=== PATIENT | female | born 1935 | race Caucasian/White ===

== ENCOUNTER 2016-10-22 08:43 | Day surgery (SDC) | payer OTHER ==
[2016-10-22] MEDS ORDERED: BETAMET ACET/BETAMET NA PH 6 MG/1 ML - 5 ML IAC ONE (09:00)
[2016-10-22] MEDS ORDERED: SODIUM BICARB IM ONE ×2 (09:00)
[2016-10-22] MEDS ORDERED: LIDOCAINE IM ONE ×2 (09:00)
[2016-10-22] MEDS ORDERED: Iopamidol Inj 61% 50 ML VIAL INTRATHEC ONE (09:00)
[2016-10-22] MEDS ORDERED: Ropivacaine 0.2% VIAL 2 MG/ML VIAL IAC ONE (09:00)
[2016-10-22 14:31] VITALS: RESP 14; TEMP 98.6
--- NOTE | 2016-10-22 15:29 | GEN.OPNOTE ---
Facet Injection Procedure: Other (Bilateral third occipital nerve block) Procedure Code - Neurosurgery: 30811 : Fluoroscopic Guidance, 81033 : C/T Spine Facet/Med, 1st, 74891 : C/T Spine Facet/Med, 2nd Postoperative Diagnosis: C2-3 facet arthropathy -: Consent: Rationale for procedure, nature of procedure, possible risks and benefits were discussed with the patient. Risks including allergic reaction to medications, known effects of steroid medications including transient elevations in blood sugar with aggravation of pre-existing diabetes and remote risk of aseptic necrosis of the hip. Infection or bleeding with potential risk of neurologic injury with weakness, paralysis or were all reviewed with the patient who wished to proceed. Anesthesia, sedation: No intravenous access or sedation was used. Physiologic monitoring of pulse and oxygen saturation was utilized. Procedure: The patient was placed supine on the operating room table, prepped with Chloroprep and sterilely draped. The skin was anesthetized with 1% Buffered Xylocaine. Under fluoroscopic control a 25-gauge needle was advanced to the lateral margin of the C2-3 facet and another to the junction of the upper and middle third of this 3 lateral mass and a third to the junction of the inferior third and middle third of the C2 lateral mass bisecting the lateral mass. Following this [1] ml of a mixture of Celestone (6mg/ml) and Ropivacaine was injected at each site. Procedure was done bilaterally. Lateral images of the final needle placement was obtained. The needles was removed and the patient returned to the post procedure recovery room where they were monitored for any side effects. Pain assessment: Preprocedure pain [8]/10, post procedure pain [6]/10. Discharge instructions: Patient was given a pain log to be filled out and returned. A delayed response to the steroids of 2-5 days was discussed.
== END 2016-10-22 13:33 | disposition home or self-care (01) ==
LOC: SDSC 08:43
PROVIDERS: ATTEND Neurological Surgery
DX: M47.812 Spondylosis without myelopathy or radiculopathy, cervical region (principal); M54.5 Low back pain; M16.0 Bilateral primary osteoarthritis of hip; M54.2 Cervicalgia
CPT/HCPCS: 64490; 64491; 76000; J0702; J2795; 99213; J2001

== ENCOUNTER → 2016-10-22 | Outpatient (CLI) | payer OTHER | LOC: MMPC 09:00 | PROVIDERS: ATTEND Family Medicine | DX: M54.5 Low back pain (principal); M16.0 Bilateral primary osteoarthritis of hip; M54.2 Cervicalgia | CPT/HCPCS: 99213; G0463; 64490 ==

== ENCOUNTER → 2016-12-22 | Outpatient (CLI) | payer OTHER | LOC: MMPC 09:00 | PROVIDERS: ATTEND Family Medicine | DX: M54.5 Low back pain (principal); R51 Headache; R60.0 Localized edema | CPT/HCPCS: 99213; G0463 ==

== ENCOUNTER → 2017-01-05 | Outpatient (CLI) | payer OTHER | LOC: MMPC 10:00 | PROVIDERS: ATTEND Physician Assistant | DX: M47.812 Spondylosis without myelopathy or radiculopathy, cervical region (principal) | CPT/HCPCS: 99212; G0463 ==

== ENCOUNTER 2017-02-10 09:20 | Day surgery (SDC) | payer OTHER ==
[~2017-02-10 09:20] MED LIST: BUPivacaine Inj 0.5% PF (5mg/ml) 10ml vial INTRATHEC ONE
--- NOTE | 2017-02-10 11:12 | GEN.OPNOTE ---
Facet Injection Procedure: Facet Injection with Local Anesthetic and Steriod Procedure Code - Neurosurgery: 24059 : C/T Spine Facet/Med, 1st Level: Right C23 Preoperative Diagnosis: Cervical Spondylosis Postoperative Diagnosis: same -: Consent: Rationale for procedure, nature of procedure, possible risks and benefits were discussed with the patient. Risks including allergic reaction to medications, known effects of steroid medications including transient elevations in blood sugar with aggravation of pre-existing diabetes and remote risk of aseptic necrosis of the hip. Infection or bleeding with potential risk of neurologic injury with weakness, paralysis or were all reviewed with the patient who wished to proceed. Anesthesia, sedation: No intravenous access or sedation was used. Physiologic monitoring of pulse and oxygen saturation was utilized. Procedure: The patient was placed prone on the operating room table, prepped with Chloroprep and sterilely draped. The skin was anesthetized with 1% Buffered Xylocaine. Under fluoroscopic control a 22-gauge needle was advanced centroid pf the C2 and C3 level on the right. Following this 1 ml of .5% bupivicaine was injected. AP and lateral images of the final needle placement was obtained. The needle was removed and the patient returned to the post procedure recovery room where they were monitored for any side effects. Pain assessment: Preprocedure pain []/10, post procedure pain []/10. Discharge instructions: Patient was given a pain log to be filled out and returned. A delayed response to the steroids of 2-5 days was discussed.
[2017-02-10 11:17] VITALS: RESP 18; TEMP 97.7
== END 2017-02-10 11:45 | disposition home or self-care (01) ==
LOC: SDSC 09:20
PROVIDERS: ATTEND Pain Medicine Interventional Pain Medicine
DX: M47.812 Spondylosis without myelopathy or radiculopathy, cervical region (principal)
CPT/HCPCS: 76000; J3490

== ENCOUNTER → 2017-04-06 | Outpatient (CLI) | payer OTHER | LOC: MMPC 09:00 | PROVIDERS: ATTEND Family Medicine | DX: M54.5 Low back pain (principal); M54.2 Cervicalgia; F41.1 Generalized anxiety disorder | CPT/HCPCS: 99213; G0463 ==

== ENCOUNTER → 2017-04-28 | Outpatient (CLI) | payer OTHER ==
--- NOTE | 2017-04-28 11:01 | DI ---
History: Neck pain Comparison: April 14, 2015 Findings: Posterior fixation extends from C3 to C6 graft Anterior plate and screws extend from C3-C7. Hardware is well seated. No instability is demonstrated with flexion or extension views The C2-3 intervertebral disc space is well maintained. There is no prevertebral soft tissue swelling. Impression: Extensive cervical hardware. Hardware is well seated. Alignment is stable. No changes. Since April 14, 2015.
== END ==
LOC: ORTHO 10:32
PROVIDERS: ATTEND Physician Assistant
DX: M54.2 Cervicalgia (principal); Z98.890 Other specified postprocedural states
CPT/HCPCS: 72050; 99212

== ENCOUNTER 2017-05-04 09:51 | Day surgery (SDC) | payer OTHER ==
[~2017-05-04 09:51] MED LIST changes: -BUPivacaine Inj 0.5% PF (5mg/ml) 10ml vial INTRATHEC ONE; +DEXAMETHASONE PF 10 MG/1 ML VIAL IM ONE
--- NOTE | 2017-05-04 11:35 | GEN.OPNOTE ---
Facet Injection Procedure: Facet Injection with Local Anesthetic and Steriod Procedure Code - Neurosurgery: 83706 : C/T Spine Facet/Med, 1st Level: C23 Preoperative Diagnosis: Cervical Spondylosis Postoperative Diagnosis: same -: Consent: Rationale for procedure, nature of procedure, possible risks and benefits were discussed with the patient. Risks including allergic reaction to medications, known effects of steroid medications including transient elevations in blood sugar with aggravation of pre-existing diabetes and remote risk of aseptic necrosis of the hip. Infection or bleeding with potential risk of neurologic injury with weakness, paralysis or were all reviewed with the patient who wished to proceed. Anesthesia, sedation: No intravenous access or sedation was used. Physiologic monitoring of pulse and oxygen saturation was utilized. Procedure: The patient was placed prone on the operating room table, prepped with Chloroprep and sterilely draped. The skin was anesthetized with 1% Buffered Xylocaine. Under fluoroscopic control a 22-gauge needle was advanced right C23 facet joint . Omnipaque was injected under real-time fluoroscopy demonstrating an facet arthrogram. Following this 1 ml of a mixture of triamcinolone(40mg/ml) and Ropivacaine was injected. AP and lateral images of the final needle placement was obtained. The needle was removed and the patient returned to the post procedure recovery room where they were monitored for any side effects. Pain assessment: Preprocedure pain []/10, post procedure pain []/10. Discharge instructions: Patient was given a pain log to be filled out and returned. A delayed response to the steroids of 2-5 days was discussed.
[2017-05-04 12:06] VITALS: RESP 16
[2017-05-04 12:17] VITALS: TEMP 97.3
== END 2017-05-04 11:45 | disposition home or self-care (01) ==
LOC: SDSC 09:51
PROVIDERS: ATTEND Pain Medicine Interventional Pain Medicine
DX: M47.812 Spondylosis without myelopathy or radiculopathy, cervical region (principal)
CPT/HCPCS: 64490; 76000; J1100

== ENCOUNTER 2018-10-22 16:36 | Inpatient (IN) ==
[2018-10-22] MEDS ORDERED: Sodium Chloride 0.9% 1,000 ML PRIMARY IV ONE (17:05)
[2018-10-22] MEDS ORDERED: ONDANSETRON 4 MG/2 ML VIAL IVP ONE (17:05)
--- NOTE | 2018-10-22 17:11 | EKG ---
[address] [address] Measurements Intervals [place] Rate: 59 P: 32 TN: 159 QRS: 104 QRSD: 90 T: 55 QT: 448 QTc: 447 Interpretive Statements SINUS BRADYCARDIA MARKED RIGHT AXIS DEVIATION , QUESTION LEAD REVERSAL VS RVH Compared to ECG 03/14/2013 17:44:51 Right-axis deviation now present Sinus rhythm no longer present Consider repeat study Electronically Signed On 10-22-18 17:34:17 [facility] by Zac Valadez [email or web address]
[2018-10-22 17:16] LABS: BASOPHILS # (AUTO) 0.02 10*3/UL; BASOPHILS % (AUTO) 0.3 % (0-1); EOSINOPHILS # (AUTO) 0.07 10*3/UL; EOSINOPHILS % (AUTO) 1.1 % (0-8); Hematocrit [HCT] 39.6 % (37.0-47.0); Hemoglobin [HGB] 13.1 g/dL (12.0-16.0); LYMPHOCYTES # (AUTO) 0.97 10*3/uL; MEAN CORPUSCULAR HEMOGLOBIN 33.4 PG (27-31); MEAN CORPUSCULAR HGB CONC 33.1 g/dL (33-37); MEAN PLATELET VOLUME 9.2 FL (7.4-12.2); MONOCYTES # (AUTO) 0.68 10*3/UL (0.3-0.8); MONOCYTES % (AUTO) 11.1 % (5-15); NEUTROPHILS # (AUTO) 4.35 10*3/UL; NEUTROPHILS % (AUTO) 71.2 % (50-80); RED BLOOD COUNT 3.92 10^6/uL (4.20-5.40)
[2018-10-22 17:16] LABS: VENOUS PH 7.38 (7.32-7.42)
[2018-10-22 17:17] LABS: PLATELET MORPHOLOGY COMMENT NORMAL MORPHOLOGY (NORM); RBC MORPHOLOGY COMMENT NORMAL MORPHOLOGY (NORM); WBC MORPHOLOGY COMMENT NORMAL MORPHOLOGY (NORM)
[2018-10-22] MEDS ORDERED: KETOROLAC 15 MG/1 ML VIAL IVP ONE (17:18)
[2018-10-22 17:28] LABS: BLOOD UREA NITROGEN 12 mg/dL (7-22); SERUM ALBUMIN 3.8 g/dL (3.5-4.8)
[2018-10-22 17:40] LABS: BILIRUBIN,URINE NEGATIVE (NEG); CLARITY,URINE CLEAR (CLEAR); COLOR,URINE YELLOW (Y); GLUCOSE, URINE (UA) NEGATIVE (NEG); OCCULT BLOOD,URINE NEGATIVE (NEG); PROTEIN,URINE NEGATIVE (NEG); UROBILINOGEN,URINE 0.2 EU/dL (0.2)
[2018-10-22 17:41] LABS: URINE SAMPLE TYPE CATH SPECIMEN
--- NOTE | 2018-10-22 18:20 | DI ---
XR CXR 2VW PA/LAT,10/22/2018 5:05 PM: Clinical History: Cough and dyspnea. Previous Exam: July 28, 2007 Findings: PA and lateral views of the chest are obtained, and demonstrate airspace disease within the lung base s and blunting of the costophrenic angles. Postsurgical changes are seen within the cervical spine. There is some silhouetting of the right hear t border as well. Mild degenerative changes of the acromioclavicular joints are seen. There is diffuse osteopenia. Impression: Airspace disease within the lung bases and silhouetting of the right heart border worrisome for pneum onia. Recommend followup imaging after treatment to document resolution.
[2018-10-22] MEDS ORDERED: FUROSEMIDE 10 MG/1 ML - 4 ML IVP ONE (18:23)
--- NOTE | 2018-10-22 19:43 | DI ---
CT ANGIOGRAM OF THE CHEST, 10/22/2018 6:23 PM : Clinical History: Dyspnea. Elevated D-dimer test. Previous Exam: 02/19/2013 Technique: Scans from base of neck to lung bases with IV contrast. Bolus tracking protocol was used f or timing the injection. Non-MIPS and MIPS sagittal/coronal images generated. IV Contrast: 56 mL of Isovue 300. Base of Neck: Normal. Nodes: Normal axillary, supraclavicular, mediastinal, and hilar lymph nodes. Heart: Cardiomegaly. Calcifications are present in the proximal and middle thirds of the LAD and the right coronary artery. Aorta: Normal thoracic aorta. No aneurysm or dissection. Pulmonary Arteries: No pulmonary emboli or pulmonary embolism with infarction. There is pulmonary art erial hypertension. Lungs: No acute infiltrate present. Extensive Valentin A Valentin B lines are present and these are quite prominent in terms of caliber. The findings are consistent with interstitial pulmonary edema seconda ry to CHF. Small blebs are present in both lungs primarily in the upper lobes. Effusion(s): Small bilateral pleural effusions. Fluid is also present in the right major fissure. Nodules: None. Bony Structures: Normal visualized portions of ribs, sternum, scapulae, clavicles, and shoulders. Nor mal visualized portions of thoracic spine. Diffuse osteoporosis. Limited Upper Abdomen: Normal adrenal glands and spleen. Normal limited views of liver and pancreas. READIN. No evidence of pulmonary embolism or pulmonary embolism with infarction. There is pulmonary arter ial hypertension. 2. Cardiomegaly with CHF. Small bilateral pleural effusions. Coronary artery disease with calcificat ions in the LAD and right coronary artery. 3. No evidence of pneumonia. Centrilobular emphysema 4. Diffuse osteoporosis.
--- NOTE | 2018-10-22 20:58 | PDOC ---
HPI - History of Present Illness History of Present Illness: This very nice 83-year-old female who was been feeling short of breath over the last 2 weeks she was first seen in [place] and there they gave her some medication for headache. Then she went to the [facility] yesterday was seen by Travis was sent home today she is been more short of breath and came to the ER by her son. Patient looks to be in active congestive heart failure with +3 pitting edema and decreased breath sounds and lateral pulmonary effusions denies chest pain she is coherent and speaks in full sentences I did discuss the case with her son in detail Past Medical History Medical History: Congestive heart failure/GERD Tobacco Use: Former Smoker In the Past 12 Months, Have Used or Abuse Any of the Following Substance: None Medication / Allergies Home Medications: Home Medications Medication Instructions Recorded Confirmed Type Travoprost [Travatan Z] 1 drp OP BEDTIME drp 12/22/09 10/22/18 History Timolol Maleate/Pf [Timoptic 0.5% 1 ea OP DAILY 08/16/11 10/22/18 History Ocudose Drop] Lutein 2 tab PO QD 11/22/12 10/22/18 History Acetaminophen [Tylenol] 325 mg PO QID PRN tab 05/07/13 10/22/18 History Folic Acid 0.8 mg PO DAILY tab 05/07/13 10/22/18 History Probiotic 1 ea PO DAILY cap 05/07/13 10/22/18 History Esomeprazole Magnesium [Nexium] 1 cap PO QD #30 cap 10/17/15 10/22/18 History Potassium Gluconate [Potassium] 1 tab PO QD tab 05/12/16 10/22/18 History Cholecalciferol (Vitamin D3) 2 tab PO QD #60 tab 07/09/16 10/22/18 Rx [Vitamin D3] Levothyroxine Sodium [Synthroid] 1 tab PO DAILY tab 08/26/16 10/22/18 History Vit C/E/Zn/Coppr/Lutein/Zeaxan 1 ea PO QD cap 10/22/16 10/22/18 History [Preservision Areds 2 Softgel] Hydromorphone HCl [Dilaudid] 1 tab PO Q4H #180 tab 04/06/17 Clinic Lorazepam 1 tab PO TID #90 tab 04/06/17 Clinic Magnesium 200 mg PO QD tab 04/06/17 10/22/18 History Gabapentin [Neurontin] 1 cap PO ASDIR #180 cap 04/29/17 10/22/18 Clinic Beta Carot W/Vit E,C,Min Tab 1 ea PO DAILY 05/15/18 10/22/18 History [Ocuvite Tab] Lorazepam 0.5 mg PO TID PRN 05/15/18 10/22/18 History Multivitamin [Daily Multivitamin] 1 ea PO DAILY 05/15/18 10/22/18 History Pyridoxine HCl [Vitamin B6] 100 mg PO DAILY 05/15/18 10/22/18 History Hydrocodone/Acetaminophen 1 tab PO Q6H PRN PRN 10/22/18 10/22/18 History [Hydrocodone-Acetamin 7.5-325] Ondansetron Odt [Zofran ODT] 4 mg PO Q8H PRN 10/22/18 10/22/18 History Allergies/Adverse Reactions: Allergies Allergy/AdvReac Type Severity Reaction Status Date / Time diphenhydramine Allergy Severe THROAT Verified 10/22/18 16:58 [Diphenhydramine] SWELLING Sulfa (Sulfonamide Allergy Severe SWELLING Verified 10/22/18 16:58 Antibiotics) cephalexin Allergy Intermediate THROAT Verified 10/22/18 16:58 SWELLING tramadol AdvReac Severe DIZZINESS Verified 10/22/18 16:58 codeine [Codeine] AdvReac Intermediate NAUSEA Verified 10/22/18 16:58 cyclobenzaprine HCl AdvReac Intermediate FEET/LEG Verified 10/22/18 16:58 [From Flexeril] SWELLING duloxetine HCl AdvReac Intermediate HALLUCINATI Verified 10/22/18 16:58 [From Cymbalta] ONS fentanyl AdvReac Intermediate "FEEL Verified 10/22/18 16:58 FUNNY" oxycodone AdvReac Intermediate NAUSEA Verified 10/22/18 16:58 Review of Systems - Review of Systems All Systems: Reviewed & No Additional Complaints Except as Stated - Respiratory Respiratory: REPORTS: Cough, Dyspnea with Exertion - Cardiovascular Cardiovascular: REPORTS: Orthopnea. DENIES: Chest Pain - Gastrointestinal Gastrointestinal / Abdominal: DENIES: Negative System Review, Nausea, Vomiting, Diarrhea, Constipation, Abdominal Pain, Bloody Stool, Poor Appetite, Heartburn, Regurgitation, Bloating, Lactose Intolerance, Melena, Bright Red Blood per Rectum, Other, See HPI - Genitourinary Genitourinary: DENIES: Pain, Burning, Hematuria, Urgency Exam - Vitals Vital Signs: Vital Signs Temperature 97.7 F Temperature Source Temporal Artery Scan Pulse Rate [Pulse Oximeter 67 Right] Respiratory Rate 15 Blood Pressure [Left Arm] 157/92 Pulse Ox 70 Oxygen Delivery Method Room Air Height 5 ft 3 in Weight 169 lb - General General Appearance: No Acute Distress, Cooperative - Head Head Exam: Normal Inspection, Normocephalic, Atraumatic - Eye Eye Exam: POSITIVE: PERRL, EOMI - Neck Neck Exam: Normal Inspection, Full ROM, No Tenderness, No Lymphadenopathy, No Thyromegaly, JVP is not Raised - Cardiovascular Cardiovascular Exam: POSITIVE: RRR, No Murmur, No Clicks, No Gallops, No Rubs, PMI Non-Displaced - GI/Abdominal GI/Abdominal Exam: POSITIVE: Normal Bowel Sounds, Non Tender, Non Distended, Soft, No Masses, No Hepatomegaly, No Splenomegaly, No Organomegaly - Extremities Extremities Exam: POSITIVE: No Clubbing Present, No Cyanosis Present, +3 Edema - Neurological Neurological Exam: POSITIVE: Alert, No Facial Droop, Speech Intact / Clear - Psychiatric Psychiatric Exam: POSITIVE: Normal Affect Results - Labs CBC and BMP: 10/22/18 16:55 10/22/18 16:55 Assessment and Plan - Patient Problems (1) CHF (congestive heart failure) Current Visit: No Status: Acute Onset Date: 02/19/13 Comment: We will admit the patient telemetry protocol, Lasix drip insert Bernabe fracture output she does have bilateral pleural effusions most likely this is all right heart failure with pulmonary hypertension and emphysema she does have calcifications in the LAD and right coronary we'll rule out with serial troponins. Continue other meds for other medical issues that are not active at this point we'll monitor electrolytes and replace as needed Code(s): I50.9 - Heart failure, unspecified (2) GERD (gastroesophageal reflux disease) Current Visit: No Status: Acute Onset Date: 08/01/12 Code(s): K21.9 - Gastro-esophageal reflux disease without esophagitis (3) Hypoxia Current Visit: No Status: Acute Onset Date: 02/27/13 Code(s): R09.02 - Hypoxemia
[2018-10-22] MEDS ORDERED: GABAPENTIN 100 MG CAPSULE PO SCH (21:34)
[2018-10-22] MEDS ORDERED: LIDOCAINE W/ SODIUM BICARB 0.5 ML SYR SUBD PRN (21:34)
[2018-10-22] MEDS ORDERED: ACETAMINOPHEN 325 MG TABLET PO PRN (21:34)
[2018-10-22] MEDS ORDERED: LIDOCAINE HCL 2 % 10 ML JELLY URO-JECT TOPICAL PRN (21:34)
[2018-10-23] MEDS: HEPARIN 5000 UNIT/1 ML SUBCUT SCH ×4 (00:11→21:13)
[2018-10-23] MEDS: HYDROcodone-APAP 7.5 MG-325 MG TABLET PO PRN ×3 (02:11→14:47)
[2018-10-23] MEDS: LEVOTHYROXINE 137 MCG TABLET PO SCH (04:42)
[2018-10-23 05:25] LABS: BLOOD UREA NITROGEN 10 mg/dL (7-22); BUN/CREATININE RATIO 16.66 (6-20); SERUM ALBUMIN 4.1 g/dL (3.5-4.8)
[2018-10-23] MEDS: OMEPRAZOLE 40 MG CAPSULE PO SCH (05:41)
[2018-10-23] MEDS: LORazepam 1 MG TABLET PO PRN ×2 (05:41→10:45)
--- NOTE | 2018-10-23 06:38 | PDOC ---
General Adult HPI - General Chief Complaint: Dyspnea Stated Complaint: DYSPNEA Date Seen by Provider: 10/22/18 Time Seen by Provider: 16:50 Source: POSITIVE: Patient, Spouse Exam Limitations: POSITIVE: No limitations Nurse's Notes Reviewed & Considered: Yes - History of Present Illness Initial Comment: The patient is an 83-year-old female who is brought to the emergency room by her son. Patient and son reports that for the past 7 days, approximately, she has had progressive weakness. She's also had some shortness of breath and nausea. She states that she was seen in the emergency room in [place] 6 days ago and was discharged, reportedly without any etiology found. She she was also recently seen at an urgent care center yesterday. Patient denies any chest pain. She does complain of dyspnea and her oxygen saturation on room air upon arrival to the emergency room was noted to be 70%. Afebrile. She's had some cough, especially today. Some diarrhea a week ago. Cough is minimally productive. No pleurisy. Have you received a tetanus shot in the past 10 years?: Unknown Body Location Affected: REPORTS: Chest Timing: REPORTS: Gradual, Getting Worse Duration: >1 week Severity: Moderate Quality: REPORTS: Other (Patient denies any pain anywhere) Context: REPORTS: None Modifying Factors: improves with: Coughing, Other (Shortness of breath; progressive weakness) Associated Symptoms: Shortness of breath, cough, progressive weakness. Similar Symptoms Previously: No Recent Care Received: REPORTS: Recently Seen, Treated by MD (As above) Any Prior Injuries Related to Current Complaint?: No - Patient Home Medications Home Medications: Home Medications Travoprost [Travatan Z] 1 drp OP BEDTIME drp 12/22/09 Timolol Maleate/Pf [Timoptic 0.5% Ocudose Drop] 1 ea OP DAILY 08/16/11 Lutein 2 tab PO QD 11/22/12 Acetaminophen [Tylenol] 325 mg PO QID PRN tab 05/07/13 Folic Acid 0.8 mg PO DAILY tab 05/07/13 Probiotic 1 ea PO DAILY cap 05/07/13 Esomeprazole Magnesium [Nexium] 1 cap PO QD #30 cap 10/17/15 Potassium Gluconate [Potassium] 1 tab PO QD tab 05/12/16 Cholecalciferol (Vitamin D3) [Vitamin D3] 2 tab PO QD #60 tab 07/09/16 Levothyroxine Sodium [Synthroid] 1 tab PO DAILY tab 08/26/16 Vit C/E/Zn/Coppr/Lutein/Zeaxan [Preservision Areds 2 Softgel] 1 ea PO QD cap 10/22/16 Hydromorphone HCl [Dilaudid] 1 tab PO Q4H #180 tab 04/06/17 Lorazepam 1 tab PO TID #90 tab 04/06/17 Magnesium 200 mg PO QD tab 04/06/17 Gabapentin [Neurontin] 1 cap PO ASDIR #180 cap 04/29/17 Beta Carot W/Vit E,C,Min Tab [Ocuvite Tab] 1 ea PO DAILY 05/15/18 Lorazepam 0.5 mg PO TID PRN 05/15/18 Multivitamin [Daily Multivitamin] 1 ea PO DAILY 05/15/18 Pyridoxine HCl [Vitamin B6] 100 mg PO DAILY 05/15/18 Hydrocodone/Acetaminophen [Hydrocodone-Acetamin 7.5-325] 1 tab PO Q6H PRN PRN 10/22/18 Ondansetron Odt [Zofran ODT] 4 mg PO Q8H PRN 10/22/18 - Patient Allergies Allergies/Adverse Reactions: Allergies Allergy/AdvReac Type Severity Reaction Status Date / Time diphenhydramine Allergy Severe THROAT Verified 10/22/18 16:58 [Diphenhydramine] SWELLING Sulfa (Sulfonamide Allergy Severe SWELLING Verified 10/22/18 16:58 Antibiotics) cephalexin Allergy Intermediate THROAT Verified 10/22/18 16:58 SWELLING tramadol AdvReac Severe DIZZINESS Verified 10/22/18 16:58 codeine [Codeine] AdvReac Intermediate NAUSEA Verified 10/22/18 16:58 cyclobenzaprine HCl AdvReac Intermediate FEET/LEG Verified 10/22/18 16:58 [From Flexeril] SWELLING duloxetine HCl AdvReac Intermediate HALLUCINATI Verified 10/22/18 16:58 [From Cymbalta] ONS fentanyl AdvReac Intermediate "FEEL Verified 10/22/18 16:58 FUNNY" oxycodone AdvReac Intermediate NAUSEA Verified 10/22/18 16:58 Past Medical History - heen HEENT History: Glaucoma, Macular Degeneration Cardiovascular History: Denies History Respiratory History: Pneumonia Additional Respiratory History: HISTORY PNEUMONIA WITH EMPYEMA Gastrointestinal History: GERD Genitourinary History: Recurrent UTI, Incontinence Endocrine History: Hypothyroidism Musculoskeletal History: Arthritis, Back Pain, Joint Pain Prosthesis or Implant: Yes (L HIP, RT KNEE) Additional Musculoskeletal History: CHRONIC NECK PAIN Neurological History: Migraines, Other (please comment) Additional Neurological History: HEADACHES Blood Disorders: Denies History Psychiatric History: Anxiety Disorders Additional Psychiatric History: hydromorphone q4h History of Sexually Transmitted Diseases: No Female Reproductive History: Denies History Obstetrical History: Denies History Cancer History: Denies History In Past Year Been Physically Harmed or Verbally Threatened: No History of MDRO: No History of Other Communicable Diseases: No Tobacco Use: Former Smoker Alcohol Use: None In the Past 12 Months, Have Used or Abuse Any Substance: None Previous Surgical History: Yes Type / Date of Surgery: APPY/ BILAT BREAST BX/ CATARACT EXT, BILAT/ MING/ COLONOSCOPY/ D&C/ EGD/ LEFT TKA/ THORACOSCOPY WITH DRAINAGE OF EMPYEMA/ TONSIL LECTOMY/ NECK FUSION, ANTERIOR AND POSTERIOR APPROACHES/SHOULDER SX L, TOT L HIP, DRAIN IN RT EYE Anesthesia Reactions: No Malignant Hyperthermia: No Significant Family History: Cancer Past Medical History Reviewed: Reviewed - No Changes ROS - Limitations ROS Limitations: No Limitations Constitution: REPORTS: Weakness Cardiovascular: REPORTS: Denies Cardiac Symptoms Respiratory: REPORTS: Cough Non Productive, Shortness Of Breath Neurological: REPORTS: Denies Neuro Symptoms Gastrointestinal: REPORTS: Nausea Endocrine: REPORTS: Denies Symptoms Musculoskeletal: REPORTS: Denies MS Symptoms Genitourinary: REPORTS: Denies Symptoms Eyes: REPORTS: Denies Symptoms ENT: REPORTS: Denies Symptoms Skin: REPORTS: Denies Skin Symptoms Lympathic: REPORTS: Denies Lympathic Symptoms Immunologic: POSITIVE: Denies Symptoms Psychiatric: POSITIVE: Denies Psych Symptoms General Adult Exam - General Appearance General Appearance: POSITIVE: Alert, Cooperative, No Acute Distress, No Evidence of Trauma - HEENT HEENT: POSITIVE: Head Inspection Nml, Eyes Inspection Nml, Ears Inspection Nml, Nose Inspection Nml, Oral/Dental Inspect. Nml, Pharynx Inspect. Nml, PERRL, EOMI - Pupils Pupil Size: 3 mm: Bilateral - Neck Neck: POSITIVE: Normal Inspection, Thyroid Normal - Respiratory Respiratory: POSITIVE: Rales (Bilateral posterior rales, especially on the right). NEGATIVE: Breath Sounds Normal - Cardiovascular Cardiovascular: POSITIVE: Regular Rate & Rhythm, No Murmur, No Gallop, PMI Normal Peripheral Pulses: Radial (R): 2+, Radial (L): 2+, Dorsalis-pedis (R): 2+, Dorsalis-pedis (L): 2+ - Abdomen Abdomen: Soft: (All Quadrants), Normal Bowel Sounds: (All Quadrants), Denies Tenderness: (All Quadrants), No Splenomegaly: (All Quadrants), No Hepatomegaly: (All Quadrants), No Guarding: (All Quadrants), No Rebound: (All Quadrants), No Palpable Pulse: (All Quadrants), No Palpabale Mass: (All Quadrants), No Distention: (All Quadrants), No Rigidity: (All Quadrants) - Back Back: POSITIVE: Normal Inspection - Skin Skin: POSITIVE: Normal Color, Warm, Dry, No Rash - Extremities Extremity: Non-Tender: (All Extremities), Normal ROM: (All Extremities), Pelvis Stable: (RUE), (LUE), Normal Tendon Exam: (All Extremities), Edema / Swelling: (RLE), (LLE) Additional Extremities Details: Extremity examination normal except for bilateral pedal edema - Neurological / Psychological Neurological: POSITIVE: 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 CTA chest shows pulmonary edema; no PE. Small bilateral pleural effusions Lab Results Reviewed by Me: Yes Lab Results:: Laboratory Results 10/22/18 10/22/18 10/22/18 16:55 16:55 16:55 WBC 6.12 RBC 3.92 L Hgb 13.1 Hct 39.6 MCV 101.0 H MCH 33.4 H MCHC 33.1 RDW Std Deviation 54.5 H RDW Coeff of Ping 14.9 H Plt Count 357 H MPV 9.2 Immature Gran % (Auto) 0.5 Neut % (Auto) 71.2 Lymph % (Auto) 15.8 Hand % (Auto) 11.1 Eos % (Auto) 1.1 Baso % (Auto) 0.3 Immature Gran # (Auto) 0.03 Neut # (Auto) 4.35 Lymph # (Auto) 0.97 Hand # (Auto) 0.68 Eos # (Auto) 0.07 Baso # (Auto) 0.02 WBC Morphology Comment Normal morphology Plt Morphology Comment Normal morphology RBC Morph Comment Normal morphology D-Dimer 1.13 H VBG pH VBG pCO2 VBG HCO3 VBG Base Excess Sodium 129 L Potassium 4.4 Chloride 91 L Carbon Dioxide 26 Anion Gap 12 BUN 12 Creatinine 0.6 BUN/Creatinine Ratio 20.00 Glucose 110 Calculated Osmolality 268.0 Lactic Acid Calcium 8.7 Total Bilirubin 0.5 AST 22 ALT 28 Alkaline Phosphatase 73 Troponin I C-Reactive Protein 1.4 H NT-Pro-B Natriuret Pep 1790 H Total Protein 6.4 Albumin 3.8 Globulin 2.6 Albumin/Globulin Ratio 1.40 Ur Collection Type Urine Color Urine Clarity Urine pH Ur Specific [place] Urine Protein Urine Glucose (UA) Urine Ketones Urine Occult Blood Urine Nitrate Urine Bilirubin Urine Urobilinogen Ur Leukocyte Esterase Ur Culture Indicated? 10/22/18 10/22/18 10/22/18 16:55 16:55 17:05 WBC RBC Hgb Hct MCV MCH MCHC RDW Std Deviation RDW Coeff of Ping Plt Count MPV Immature Gran % (Auto) Neut % (Auto) Lymph % (Auto) Hand % (Auto) Eos % (Auto) Baso % (Auto) Immature Gran # (Auto) Neut # (Auto) Lymph # (Auto) Hand # (Auto) Eos # (Auto) Baso # (Auto) WBC Morphology Comment Plt Morphology Comment RBC Morph Comment D-Dimer VBG pH VBG pCO2 VBG HCO3 VBG Base Excess Sodium Potassium Chloride Carbon Dioxide Anion Gap BUN Creatinine BUN/Creatinine Ratio Glucose Calculated Osmolality Lactic Acid 1.1 Calcium Total Bilirubin AST ALT Alkaline Phosphatase Troponin I < 0.012 C-Reactive Protein NT-Pro-B Natriuret Pep Total Protein Albumin Globulin Albumin/Globulin Ratio Ur Collection Type Cath specimen Urine Color Yellow Urine Clarity Clear Urine pH 7.0 Ur Specific [place] 1.010 Urine Protein Negative Urine Glucose (UA) Negative Urine Ketones Negative Urine Occult Blood Negative Urine Nitrate Negative Urine Bilirubin Negative Urine Urobilinogen 0.2 Ur Leukocyte Esterase Negative Ur Culture Indicated? Culture not set 10/22/18 17:08 WBC RBC Hgb Hct MCV MCH MCHC RDW Std Deviation RDW Coeff of Ping Plt Count MPV Immature Gran % (Auto) Neut % (Auto) Lymph % (Auto) Hand % (Auto) Eos % (Auto) Baso % (Auto) Immature Gran # (Auto) Neut # (Auto) Lymph # (Auto) Hand # (Auto) Eos # (Auto) Baso # (Auto) WBC Morphology Comment Plt Morphology Comment RBC Morph Comment D-Dimer VBG pH 7.38 VBG pCO2 43 L VBG HCO3 25 VBG Base Excess 0 Sodium Potassium Chloride Carbon Dioxide Anion Gap BUN Creatinine BUN/Creatinine Ratio Glucose Calculated Osmolality Lactic Acid Calcium Total Bilirubin AST ALT Alkaline Phosphatase Troponin I C-Reactive Protein NT-Pro-B Natriuret Pep Total Protein Albumin Globulin Albumin/Globulin Ratio Ur Collection Type Urine Color Urine Clarity Urine pH Ur Specific [place] Urine Protein Urine Glucose (UA) Urine Ketones Urine Occult Blood Urine Nitrate Urine Bilirubin Urine Urobilinogen Ur Leukocyte Esterase Ur Culture Indicated? CBC and BMP: 10/22/18 16:55 10/23/18 04:41 EKG Interpreted/Reviewed By Me:: Yes (normal) EKG Interpretation:: POSITIVE: Normal Sinus Rhythm, Normal Rate, Normal Intervals, Normal [place], Normal QRS, Normal ST/T - Patient's Progress Pain Medication Addressed: POSITIVE: Not Applicable School/Work Release Addressed: POSITIVE: Not Applicable Re-Examine Time: 20:00 Re-Examine Comment: Patient given 40 mg of Lasix IV. Case discussed with Dr. Ornelas, hospitalist, who will come to the emergency room to further evaluate and admit. Status: POSITIVE: Unchanged, Re-Examined Antibiotics Given: No - Consult Consult (If Yes, Name of Consulting MD & Time Called): Yes (Dr. Ornelas, hospitalist, 1999) Consulting MD will see pt:: POSITIVE: [place] [facility] [place] Counseled: POSITIVE: Patient, Family (Son), RE: Lab Results, RE: Radiology Results, RE: DX, RE: Need for F/U Patient Care Time - Estimated PCT Patient Care Time (In Minutes): 60 Vital Signs - VS Reviewed Vital Signs Reviewed: Yes Discharge Clinical Impression: Congestive heart failure Discharge Disposition: Admit to Inpatient Condition: Fair Date Decision to Admit to Inpatient: 10/22/18 Time Decision to Admit to Inpatient: 20:00
[2018-10-23] MEDS: MAGNESIUM OXIDE 400 MG TABLET PO SCH (06:53)
[2018-10-23] MEDS ORDERED: Magnesium Sulfate 2gm (Premix) 2 GM/50 ML BAG IV ONE (08:27)
[2018-10-23] MEDS ORDERED: POTASSIUM GLUCONATE 99 MG PO SCH (09:00)
--- NOTE | 2018-10-23 09:16 | PDOC(PROG) ---
Interval History: Patient is feeling much better she is not short of breath today no chest pain he is very pleased with her legs not being as puffy Objective : Data - Labs CBC and BMP: 10/22/18 16:55 10/23/18 04:41 Objective : Exam - General General Appearance: Cooperative - Respiratory Respiratory Exam: Clear to Auscultation - Bilaterally, Breathing Non Labored, Normal To Percussion, Normal to Percussion and Palpation - Cardiovascular Cardiovascular Exam: RRR, No Murmur, No Clicks, No Gallops, No Rubs, PMI Non- Displaced - GI/Abdominal GI/Abdominal Exam: Normal Bowel Sounds, Non Tender, Non Distended, Soft, No Masses, No Hepatomegaly, No Splenomegaly, No Organomegaly - Extremities Extremities Exam: No Clubbing Present, +1 Edema - Neurological Neurological Exam: Alert, Oriented x 3, No Facial Droop, Speech Intact / Clear Assessment and Plan - Patient Problems (1) CHF (congestive heart failure) Current Visit: Yes Status: Acute Onset Date: 02/19/13 Comment: Improving on Lasix drip -3600 will continue for 1 more day replace magnesium and potassium.. Most likely pulmonary hypertension with right-sided heart failure that could be also left-sided failure I did order an echo might also need a stress test Code(s): I50.9 - Heart failure, unspecified (2) GERD (gastroesophageal reflux disease) Current Visit: No Status: Acute Onset Date: 08/01/12 Comment: Stable Code(s): K21.9 - Gastro-esophageal reflux disease without esophagitis (3) Hypoxia Current Visit: No Status: Acute Onset Date: 02/27/13 Comment: Secondary to congestive heart failure, and emphysema I do not believe she is having a COPD exacerbation at this time Code(s): R09.02 - Hypoxemia
[2018-10-23] MEDS: POTASSIUM CHLORIDE 20 MEQ TAB PO SCH ×2 (09:19→20:09)
[2018-10-23] MEDS: FOLIC ACID 1 MG TABLET PO SCH (09:19)
[2018-10-23] MEDS ORDERED: Acetaminophen 1000mg Inj 1,000 MG/100 ML VIAL IV ONE (10:01)
[2018-10-23] MEDS: Beta Carot W/Vit E,C,Min Tab 1 TAB TAB PO SCH (12:15)
[2018-10-23] MEDS: GABAPENTIN 100 MG CAPSULE PO SCH ×3 (12:15→20:08)
[2018-10-23] MEDS ORDERED: MORPHINE SULFATE 2 MG/1 ML IVP PRN ×2 (14:15→19:46)
[2018-10-23] MEDS: EYE EACH EYE SCH (20:08)
[2018-10-23] MEDS: MORPHINE SULFATE 2 MG/1 ML IVP PRN (20:08)
[2018-10-23] MEDS: TRAVOPROST 0.004% EACH EYE SCH (20:08)
[2018-10-23] MEDS ORDERED: PHENOL/SODIUM PHENOLATE 177 ML SPRAY PO PRN (20:50)
[2018-10-23] MEDS ORDERED: KETOROLAC 15 MG/1 ML VIAL IVP ONE (20:50)
[2018-10-23] MEDS ORDERED: EYE EACH EYE SCH (21:00)
[2018-10-23] MEDS ORDERED: TIMOLOL MALEATE 0.5% EACH EYE SCH (21:00)
[2018-10-24] MEDS: HYDROcodone-APAP 7.5 MG-325 MG TABLET PO PRN ×5 (00:01→17:39)
[2018-10-24] MEDS: ACETAMINOPHEN 500 MG TABLET PO PRN ×2 (01:32→23:03)
[2018-10-24] MEDS: LORazepam 1 MG TABLET PO PRN ×3 (01:32→17:38)
[2018-10-24] MEDS: MORPHINE SULFATE 2 MG/1 ML IVP PRN ×3 (03:59→11:32)
[2018-10-24 04:36] LABS: BASOPHILS # (AUTO) 0.03 10*3/UL; BASOPHILS % (AUTO) 0.4 % (0-1); EOSINOPHILS # (AUTO) 0.17 10*3/UL; EOSINOPHILS % (AUTO) 2.3 % (0-8); Hematocrit [HCT] 41.1 % (37.0-47.0); Hemoglobin [HGB] 13.4 g/dL (12.0-16.0); LYMPHOCYTES # (AUTO) 0.92 10*3/uL; MEAN CORPUSCULAR HEMOGLOBIN 32.8 PG (27-31); MEAN CORPUSCULAR HGB CONC 32.6 g/dL (33-37); MEAN CORPUSCULAR VOLUME 100.7 FL (81-99); MEAN PLATELET VOLUME 9.7 FL (7.4-12.2); MONOCYTES # (AUTO) 0.93 10*3/UL (0.3-0.8); MONOCYTES % (AUTO) 12.6 % (5-15); NEUTROPHILS # (AUTO) 5.29 10*3/UL; NEUTROPHILS % (AUTO) 71.9 % (50-80); RED BLOOD COUNT 4.08 10^6/uL (4.20-5.40)
[2018-10-24] MEDS: LEVOTHYROXINE 137 MCG TABLET PO SCH (04:44)
[2018-10-24] MEDS: HEPARIN 5000 UNIT/1 ML SUBCUT SCH ×3 (04:44→21:14)
[2018-10-24 05:07] LABS: BLOOD UREA NITROGEN 19 mg/dL (7-22); BUN/CREATININE RATIO 23.75 (6-20); SERUM ALBUMIN 3.6 g/dL (3.5-4.8)
[2018-10-24 05:40] LABS: PLATELET MORPHOLOGY COMMENT NORMAL MORPHOLOGY (NORM); RBC MORPHOLOGY COMMENT NORMAL MORPHOLOGY (NORM); WBC MORPHOLOGY COMMENT NORMAL MORPHOLOGY (NORM)
[2018-10-24] MEDS: OMEPRAZOLE 40 MG CAPSULE PO SCH (06:42)
[2018-10-24] MEDS: MAGNESIUM OXIDE 400 MG TABLET PO SCH (06:42)
[2018-10-24] MEDS: EYE EACH EYE SCH ×2 (08:54→21:14)
[2018-10-24] MEDS: FOLIC ACID 1 MG TABLET PO SCH (08:54)
[2018-10-24] MEDS: Beta Carot W/Vit E,C,Min Tab 1 TAB TAB PO SCH (08:54)
[2018-10-24] MEDS: POTASSIUM CHLORIDE 20 MEQ TAB PO SCH ×2 (08:54→21:15)
[2018-10-24] MEDS: GABAPENTIN 100 MG CAPSULE PO SCH ×3 (08:54→21:15)
[2018-10-24] MEDS: TIMOLOL MALEATE 0.5% EACH EYE SCH (08:54)
--- NOTE | 2018-10-24 11:10 | PDOC(PROG) ---
Date of Service: 10/24/18 Time of Service: 11:07 Interval History: No completes of chest pain, shortness breath, nausea or vomiting. Patient feels weak. She is very sad as she recently lost her 58-year-old daughter. Objective : Data - Labs CBC and BMP: 10/24/18 03:55 10/24/18 03:55 Objective : Exam - General General Appearance: No Acute Distress, Cooperative Additional General Exam Details: Vital Signs - Last Taken Temperature 97.7 F 10/24/18 06:45 Pulse Rate 71 10/24/18 07:00 Respiratory Rate 20 10/24/18 07:00 Blood Pressure 133/69 10/24/18 06:45 Pulse Ox 92 10/24/18 07:00 - Eye Eye Exam: No Scleral Icterus - ENT ENT Exam: Mucous Membranes Moist - Respiratory Respiratory Exam: Breathing Non Labored, Coarse Breath Sounds - Cardiovascular Cardiovascular Exam: RRR, No Murmur, No Clicks, No Gallops, No Rubs, No JVD - GI/Abdominal GI/Abdominal Exam: Normal Bowel Sounds, Non Tender, Non Distended, Soft - Extremities Extremities Exam: No Cyanosis Present, Clubbing Present, +1 Edema (Edema markedly improved) - Neurological Neurological Exam: Alert, Oriented x 3, No Facial Droop, Speech Intact / Clear, Moves All Extremities Equally Assessment and Plan - Patient Problems (1) CHF (congestive heart failure) Current Visit: Yes Status: Acute Onset Date: 02/19/13 Code(s): I50.9 - Heart failure, unspecified Qualifiers: Heart failure type: right-sided Heart failure chronicity: acute on chronic Qualified Code(s): I50.813 - Acute on chronic right heart failure (2) GERD (gastroesophageal reflux disease) Status: Acute Onset Date: 08/01/12 Code(s): K21.9 - Gastro-esophageal reflux disease without esophagitis Qualifiers: Esophagitis presence: esophagitis presence not specified Qualified Code(s): K21.9 - Gastro-esophageal reflux disease without esophagitis (3) Hypoxia Current Visit: Yes Status: Acute Onset Date: 02/27/13 Code(s): R09.02 - Hypoxemia (4) Grief reaction Current Visit: Yes Status: Acute Code(s): F43.21 - Adjustment disorder with depressed mood - Assessment / Plan Additional Assessment/Plan Details: Continue diuresis with by mouth Lasix, check labs in a.m. I think the patient would benefit from an echocardiogram to look at this right- sided congestive heart failure tomorrow. We have an echocardiogram tech in town tomorrow so I'll order for tomorrow. We'll see if we can titrate the patient's oxygen down. Spoke to the patient at length Regarding her recent loss of her daughter. Offered condolences. Hopeful for discharge tomorrow with continued outpatient follow-up and monitoring.
[2018-10-24] MEDS: FUROSEMIDE 20 MG TABLET PO SCH ×2 (11:32→14:09)
[2018-10-24] MEDS: TRAVOPROST 0.004% EACH EYE SCH (21:14)
[2018-10-25] MEDS: LORazepam 1 MG TABLET PO PRN (02:19)
[2018-10-25] MEDS: HYDROcodone-APAP 7.5 MG-325 MG TABLET PO PRN (02:19)
[2018-10-25] MEDS: LEVOTHYROXINE 137 MCG TABLET PO SCH (04:30)
[2018-10-25] MEDS: HEPARIN 5000 UNIT/1 ML SUBCUT SCH ×3 (04:30→21:26)
[2018-10-25 05:23] LABS: BLOOD UREA NITROGEN 17 mg/dL (7-22); BUN/CREATININE RATIO 28.33 (6-20)
[2018-10-25] MEDS: FUROSEMIDE 20 MG TABLET PO SCH ×2 (08:00→13:32)
[2018-10-25] MEDS: MAGNESIUM OXIDE 400 MG TABLET PO SCH (08:00)
[2018-10-25] MEDS: OMEPRAZOLE 40 MG CAPSULE PO SCH (08:00)
[2018-10-25] MEDS: GABAPENTIN 100 MG CAPSULE PO SCH (10:13)
[2018-10-25] MEDS: POTASSIUM CHLORIDE 20 MEQ TAB PO SCH ×2 (10:16→21:27)
[2018-10-25] MEDS: FOLIC ACID 1 MG TABLET PO SCH (10:17)
[2018-10-25] MEDS: ACETAMINOPHEN 500 MG TABLET PO PRN ×2 (10:17→21:02)
[2018-10-25] MEDS: Beta Carot W/Vit E,C,Min Tab 1 TAB TAB PO SCH (10:17)
--- NOTE | 2018-10-25 10:36 | PTI REPORT ---
Thank you for the referral of Adriana Liriano. She was seen on 10/24/18 for an inpatient evaluation secondary to weakness. SUBJECTIVE: The patient is an 83-year-old female who presented to the hospital secondary to complaints of feeling sick with a stomach bug and also coughing. The patient also complains of her head giving her problems. The patient states that her symptoms started once she got back from [place], which was last 10/17/2018. She states she was in [place] for her daughter's and after the plane ride back she started to feel sick to her stomach which has not improved and states she developed a cough and her head also hurts. The patient states that when she was in [place] at the home that they were staying at, she did have a fall. She states that she got up in the middle of the night to go get medication and on her way back to the room she tripped over some tiling and fell onto her left leg. She does have bruising along the left jalloh and she states she also bumped her head at the time. She states that her son-in-law and some other family members helped pick her up and returned her back to her bed. She states when she woke up the next morning she was able to walk and was doing fairly well. The patient states that she has had an increase in falls over the last year with one other major fall about a month ago, but she is unable to recall the details from that fall. The patient states that prior to her hospital admittance she was not using an assistive device to get around. The patient states that she lives outside of [place] with her where she was independent with ADLs and did receive meals on wheels. 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 PAST MEDICAL HISTORY: Past medical history can be found in the patient's medical record. OBJECTIVE FINDINGS: General observations: The patient was alert and oriented to setting upon PT arrival. The patient was sitting up in the chair and did agree to participate with physical therapy evaluation. The patient was on one liter of oxygen. Strength: A manual muscle test was performed in seated position. The patient demonstrated 4/5 bilateral lower extremity strength. Transfers: The patient was able to perform a sit to stand transfer with contact guard assist x1 for safety. After ambulation, the patient transferred back to the chair with stand by assist x1 for safety. Ambulation: We did utilize a standard walker for ambulation. The patient was able to ambulate 40 feet with contact guard assist x1 and do so safely. It was discussed with the patient that a front wheeled walker would be appropriate due to her balance and general mobility along with her history of falls. The patient did agree to this and we will get her set up with one tomorrow. The patient was fatigued after this activity as she did just have a shower prior to therapy evaluation. ASSESSMENT: The patient has fair rehab potential secondary to her age and past medical history. Problem List: Decreased endurance/activity tolerance Generalized weakness Short-Term Goals: To be met by discharge from inpatient: Patient will be able to ambulate at least 150 feet safely and independently with front wheeled walker. Patient will be able to tolerate 30 minutes of physical therapy activity to improve her functional mobility and strength. Long-Term Goals: To be met following discharge from inpatient: Patient may be seen by outpatient physical therapy if deemed necessary upon time of discharge. TREATMENT PLAN: Patient will be seen B.I.D during the week and one time per day over the weekend as an inpatient to address the above goals and objectives. INITIAL TREATMENT: Treatment today consisted of the initial evaluation. Following treatment the patient was left in chair with chair alarm set and call light placed within reach. [facility]
[2018-10-25] MEDS: EYE EACH EYE SCH ×2 (10:56→21:27)
[2018-10-25] MEDS: TIMOLOL MALEATE 0.5% EACH EYE SCH (10:56)
--- NOTE | 2018-10-25 11:34 | DI ---
CT Head WO Contrast,10/25/2018 10:15 AM: Clinical History: Fall with right eye bruising. Previous Exam: April 03, 2018 Findings: Multiple helically acquired CT images are obtained through the brain without contrast, and demonstrat e mild diffuse age-related volume loss. There is no mass, hemorrhage or midline shift. The surroundin g soft tissue and osseous structures are unremarkable. Periorbital soft tissues are unremarkable. Impression: No acute intracranial pathology.
--- NOTE | 2018-10-25 12:49 | PDOC(PROG) ---
Date of Service: 10/25/18 Time of Service: 12:45 Interval History: Patient seen and evaluated earlier today. States that she is just not feeling very well, has had some nausea, denies chest pain, denies shortness of breath. She states that she was not on narcotics prior to falling and having what appears to be a postconcussive syndrome. She reports being on Ativan for some time. When I look at some of her prior medication reconciliation records, I do not see that she has been on Neurontin either. Objective : Data - Labs CBC and BMP: 10/24/18 03:55 10/25/18 04:29 Objective : Exam - General General Appearance: No Acute Distress, Cooperative Additional General Exam Details: Vital Signs - Last Taken Temperature 97.9 F 10/25/18 07:40 Pulse Rate 100 10/25/18 07:40 Respiratory Rate 20 10/25/18 07:40 Blood Pressure 150/71 10/25/18 07:40 Pulse Ox 90 10/25/18 11:00 - Eye Eye Exam: No Scleral Icterus - ENT ENT Exam: Mucous Membranes Moist - Neck Neck Exam: JVP is not Raised - Respiratory Respiratory Exam: Breathing Non Labored, Coarse Breath Sounds - Cardiovascular Cardiovascular Exam: RRR, No Murmur, No Clicks, No Gallops, No Rubs, No JVD - GI/Abdominal GI/Abdominal Exam: Normal Bowel Sounds, Non Tender, Non Distended, Soft - Extremities Extremities Exam: No Clubbing Present, No Edema Present, No Cyanosis Present - Neurological Neurological Exam: Alert, Oriented x 3, No Facial Droop, Speech Intact / Clear, Moves All Extremities Equally Assessment and Plan - Patient Problems (1) CHF (congestive heart failure) Current Visit: Yes Status: Acute Onset Date: 02/19/13 Code(s): I50.9 - Heart failure, unspecified Qualifiers: Heart failure type: right-sided Heart failure chronicity: acute on chronic Qualified Code(s): I50.813 - Acute on chronic right heart failure (2) GERD (gastroesophageal reflux disease) Status: Acute Onset Date: 08/01/12 Code(s): K21.9 - Gastro-esophageal reflux disease without esophagitis Qualifiers: Esophagitis presence: esophagitis presence not specified Qualified Code(s): K21.9 - Gastro-esophageal reflux disease without esophagitis (3) Hypoxia Current Visit: Yes Status: Acute Onset Date: 02/27/13 Code(s): R09.02 - Hypoxemia (4) Grief reaction Current Visit: Yes Status: Acute Code(s): F43.21 - Adjustment disorder with depressed mood (5) Postconcussive syndrome Current Visit: Yes Status: Acute Code(s): F07.81 - Postconcussional syndrome (6) COPD (chronic obstructive pulmonary disease) Current Visit: Yes Status: Acute Code(s): J44.9 - Chronic obstructive pulmonary disease, unspecified Qualifiers: COPD type: emphysema Emphysema type: centrilobular Qualified Code(s): J43.2 - Centrilobular emphysema - Assessment / Plan Additional Assessment/Plan Details: Stopped several medications including narcotics, Neurontin, and add antiemetics for nausea. PT and OT/in with continued weakness, swing bed Get head CT scan to make sure that there is no subdural hematoma with a recent fall. Given her increased weakness and somewhat sleepy nature today, I will check a venous blood gas as well with her known COPD and make sure that there is no CO2 narcosis
[2018-10-25] MEDS: ONDANSETRON 4 MG/2 ML VIAL IVP PRN ×2 (13:31→23:52)
[2018-10-25] MEDS: Multivitamin Tab 1 TAB PO SCH (13:32)
[2018-10-25] MEDS: CHOLECALCIFEROL 1000 IU TABLET PO SCH (13:32)
[2018-10-25 15:39] LABS: VENOUS PH 7.4 (7.32-7.42)
--- NOTE | 2018-10-25 16:22 | PT.PROG ---
Progress Note Progress Note: Patient refused therapy due to having diarrhea and feeling very weak at this time.
[2018-10-25] MEDS ORDERED: LORazepam 1 MG TABLET PO PRN (16:43)
[2018-10-25] MEDS ORDERED: KETOROLAC 15 MG/1 ML VIAL IVP ONE (16:43)
[2018-10-25] MEDS: HYDROmorphone 2 MG TABLET PO PRN ×2 (19:31→23:34)
[2018-10-25] MEDS: TRAVOPROST 0.004% EACH EYE SCH (21:27)
[2018-10-26] MEDS: Loperamide Tab 2 MG TABLET PO PRN ×2 (00:31→06:02)
[2018-10-26] MEDS: HYDROmorphone 2 MG TABLET PO PRN ×2 (03:31→13:01)
[2018-10-26] MEDS: ONDANSETRON 4 MG/2 ML VIAL IVP PRN (05:59)
[2018-10-26] MEDS: LEVOTHYROXINE 137 MCG TABLET PO SCH (06:15)
[2018-10-26] MEDS: OMEPRAZOLE 40 MG CAPSULE PO SCH (06:15)
[2018-10-26] MEDS: HEPARIN 5000 UNIT/1 ML SUBCUT SCH ×2 (06:16→13:00)
[2018-10-26] MEDS: MAGNESIUM OXIDE 400 MG TABLET PO SCH (07:19)
[2018-10-26] MEDS: FUROSEMIDE 20 MG TABLET PO SCH ×2 (07:20→13:00)
[2018-10-26] MEDS: ACETAMINOPHEN 500 MG TABLET PO PRN (07:21)
[2018-10-26] MEDS: POTASSIUM CHLORIDE 20 MEQ TAB PO SCH (08:30)
[2018-10-26] MEDS: Beta Carot W/Vit E,C,Min Tab 1 TAB TAB PO SCH (08:30)
[2018-10-26] MEDS: FOLIC ACID 1 MG TABLET PO SCH (08:30)
[2018-10-26] MEDS: Multivitamin Tab 1 TAB PO SCH (08:30)
[2018-10-26] MEDS: EYE EACH EYE SCH (08:31)
[2018-10-26] MEDS: CHOLECALCIFEROL 1000 IU TABLET PO SCH (08:31)
[2018-10-26] MEDS: TIMOLOL MALEATE 0.5% EACH EYE SCH (08:31)
--- NOTE | 2018-10-26 11:45 | DI ---
XR KNEE 1 OR 2 VWS 10/26/2018 8:36 AM HISTORY: [facility] [place] ^knee pain, fall, left side Comparison: None. Findings: AP and crosstable lateral views of the right knee show postsurgical changes consistent wit h total knee arthroplasty. There is no evidence of hardware fracture or loosening. There is no acute fracture or dislocation. Corticated ossific fragments around the knee joint may represent phleboliths versus postsurgical change. No suprapatellar joint effusion is present. Impression: Status post total knee arthroplasty without acute osseous abnormality or evidence of hard zuñiga failure.
--- NOTE | 2018-10-26 11:47 | DI ---
XR KNEE 1 OR 2 VWS 10/26/2018 8:36 AM History: [facility] [place] DI ^knee pain, fall, hx replacement, right side Comparison: None. Findings: AP and crosstable lateral views of the left knee show normal anatomic alignment without fr acture or dislocation. Moderate medial and lateral compartment subchondral sclerosis and marginal ost eophytosis is noted. There is early lateral joint space loss. No suprapatellar joint effusion is pres ent. Impression: 1. No acute osseous abnormality. 2. Medial and lateral compartment osteoarthritis with early lateral joint space loss.
[2018-10-26 12:53] VITALS: BP 123/54; RESP 18; TEMP 97.2
[2018-10-26] MEDS ORDERED: KETOROLAC 15 MG/1 ML VIAL IVP ONE (13:52)
[2018-10-26] MEDS ORDERED: BETAMET ACET/BETAMET NA PH 6 MG/1 ML - 5 ML ONE (14:02)
[2018-10-26] MEDS ORDERED: KETOROLAC 15 MG/1 ML VIAL ONE (14:02)
[2018-10-26] MEDS ORDERED: Lidocaine 1% 10 MG/ML - 20 ML VIAL SUBCUT ONE (14:03)
[2018-10-26] MEDS ORDERED: Lidocaine Inj 1% 20 ML ONE (14:03)
[2018-10-26] MEDS ORDERED: BETAMET ACET/BETAMET NA PH 6 MG/1 ML - 5 ML IM SCH (14:15)
[2018-10-26 15:12] VITALS: O2SAT 95
--- NOTE | 2018-10-26 15:46 | PROCEDURE1 ---
Procedure - - Date and Time of Service: 10/26/2018, 1540 Procedure Performed: Arthrocentesis : Intermediate Joint without US Guidance Procedure Note: Procedure Performed: Therapeutic Arthrocentesis, Knee, left side Date Procedure Performed: 2018 Indications for Procedure: 1. osteoarthritis left knee 2. Pain with left knee osteoarthritis Risks and Benefits: Risks described as bleeding, infection, or skin necrosis, and benefits as pain relief, the patient consented to have the knee arthrocentesis done. Anesthesia: Local, 1% Xylocaine, 5 mL Description of Procedure: Patient was prepped and draped in usual fashion. Using a lateral approach, a 1- 1/2 inch 23-gauge needle attached to a 10 mL syringe was inserted into the left knee joint, containing 5 mL of 2% Xylocaine and 1 mL of 30 mg Celestone per 5 mL (6 mg). This solution was injected into the knee joint. The needle was withdrawn the area was cleansed with alcohol swabs. Hemostasis was achieved. A Band-Aid was applied. After the procedure is done, the patient reported minimal improvement in her pain, stating "I guess it's a little bit less". Complications: None apparent at time of procedure Disposition: Patient will be admitted him to the swing bed.
--- NOTE | 2018-10-26 15:54 | DCSUMMARY ---
Hospitalization Summary Admit Date: 10/22/2018 Discharge Date: 10/26/18 Primary Diagnosis:: congestive heart failure, acute on chronic Hospital Course: This very pleasant 83-year-old female who presented with shortness of breath. She was diagnosed as having acute on chronic congestive heart failure, presumably right-sided with COPD. She was diuresed, and responded overly aggressively to IV diuresis. We had to change her back to by mouth Lasix and she maintained her fluid balance with that. Through the hospital stay, the patient had some issues with a recent postconcussive syndrome as she had fallen in [place] and hit her head, acute grief reaction as she just lost her daughter, and bilateral knee pain along with generalized weakness. She really did require a swing bed and she was evaluated for that next visit. We did do a knee injection for the left knee which was of variable results with minimal pain relief. It is early however, and we don't know how the steroid will set in for pain relief. Today, she states that she hurts all over which has been a fairly consistent complaint related to her arthritis symptoms and that she has some nausea but no vomiting. No chest pain and no trouble breathing. Assessment and Plan: 1. As per discharge assessments noted 2. Disposition: Patient will be discharged to the swing bed 3. Condition on discharge, stable and improved. 4. Diet: regular diet 5. Activities: PT and OT twice daily and once on the weekends 6. Follow-Up: 1. Hospital service will continue to follow the patient's care 2. 7. Medications at the Time of Discharge: Home Medications Medication Instructions Recorded Confirmed Type Travoprost [Travatan Z] 1 drp OP BEDTIME drp 12/22/09 10/22/18 History Timolol Maleate/Pf [Timoptic 0.5% 1 ea OP DAILY 08/16/11 10/22/18 History Ocudose Drop] Lutein 2 tab PO QD 11/22/12 10/22/18 History Acetaminophen [Tylenol] 325 mg PO QID PRN tab 05/07/13 10/22/18 History Folic Acid 0.8 mg PO DAILY tab 05/07/13 10/22/18 History Probiotic 1 ea PO DAILY cap 05/07/13 10/22/18 History Esomeprazole Magnesium [Nexium] 1 cap PO QD #30 cap 10/17/15 10/22/18 History Potassium Gluconate [Potassium] 1 tab PO QD tab 05/12/16 10/22/18 History Cholecalciferol (Vitamin D3) 2 tab PO QD #60 tab 07/09/16 10/22/18 Rx [Vitamin D3] Levothyroxine Sodium [Synthroid] 1 tab PO DAILY tab 08/26/16 10/22/18 History Vit C/E/Zn/Coppr/Lutein/Zeaxan 1 ea PO QD cap 10/22/16 10/22/18 History [Preservision Areds 2 Softgel] Hydromorphone HCl [Dilaudid] 1 tab PO Q4H #180 tab 04/06/17 Clinic Lorazepam 1 tab PO TID #90 tab 04/06/17 Clinic Magnesium 200 mg PO QD tab 04/06/17 10/22/18 History Gabapentin [Neurontin] 1 cap PO ASDIR #180 cap 04/29/17 10/22/18 Clinic Beta Carot W/Vit E,C,Min Tab 1 ea PO DAILY 05/15/18 10/22/18 History [Ocuvite Tab] Lorazepam 0.5 mg PO TID PRN 05/15/18 10/22/18 History Multivitamin [Daily Multivitamin] 1 ea PO DAILY 05/15/18 10/22/18 History Pyridoxine HCl [Vitamin B6] 100 mg PO DAILY 05/15/18 10/22/18 History Hydrocodone/Acetaminophen 1 tab PO Q6H PRN PRN 10/22/18 10/22/18 History [Hydrocodone-Acetamin 7.5-325] Ondansetron Odt [Zofran ODT] 4 mg PO Q8H PRN 10/22/18 10/22/18 History 8. Time, care, counseling and coordination of care for this discharge is greater than 30 minutes. Exam - Vitals Vital Signs: Vital Signs Temperature 97.2 F Temperature Source Temporal Artery Scan Pulse Rate [Pulse Oximeter 71 Right] Pulse Rate 64 Respiratory Rate 18 Blood Pressure [Left Arm] 123/54 Blood Pressure 168/85 Pulse Ox 95 Oxygen Flow Rate 1 Oxygen Delivery Method Nasal Cannula Height 5 ft 3 in Weight 164 lb 12.8 oz - General General Appearance: No Acute Distress, Cooperative - Eye Eye Exam: POSITIVE: No Scleral Icterus - ENT ENT Exam: POSITIVE: Mucous Membranes Moist - Neck Neck Exam: JVP is not Raised - Respiratory Respiratory Exam: POSITIVE: Breathing Non Labored, Coarse Breath Sounds - Cardiovascular Cardiovascular Exam: POSITIVE: RRR, No Murmur, No Clicks, No Gallops, No Rubs, No JVD - GI/Abdominal GI/Abdominal Exam: POSITIVE: Normal Bowel Sounds, Non Tender, Non Distended, Soft - Extremities Extremities Exam: POSITIVE: No Clubbing Present, No Edema Present, No Cyanosis Present - Neurological Neurological Exam: POSITIVE: Alert, Oriented x 3, No Facial Droop, Speech Intact / Clear, Moves All Extremities Equally - Psychiatric Psychiatric Exam: POSITIVE: Flat Affect Data Peritnent Studies: 10/24/18 10/24/18 10/24/18 03:55 03:55 08:20 WBC 7.36 Hgb 13.4 Hct 41.1 Plt Count 342 VBG pH VBG pCO2 VBG HCO3 VBG Base Excess Sodium Potassium Chloride Carbon Dioxide Anion Gap BUN Creatinine BUN/Creatinine Ratio Glucose Calculated Osmolality Calcium Magnesium 2.3 Total Bilirubin 0.3 D AST 37 ALT 21 Alkaline Phosphatase 82 Troponin I < 0.012 NT-Pro-B Natriuret Pep Total Protein 6.3 Albumin 3.6 Globulin 2.7 Albumin/Globulin Ratio 1.30 10/25/18 10/25/18 04:29 15:32 WBC Hgb Hct Plt Count VBG pH 7.40 VBG pCO2 42 L VBG HCO3 26 VBG Base Excess 2 Sodium 130 L Potassium 4.7 Chloride 94 L Carbon Dioxide 29 Anion Gap 7 BUN 17 Creatinine 0.6 BUN/Creatinine Ratio 28.33 H Glucose 97 Calculated Osmolality 271.0 Calcium 8.8 Magnesium Total Bilirubin AST ALT Alkaline Phosphatase Troponin I NT-Pro-B Natriuret Pep 270 Total Protein Albumin Globulin Albumin/Globulin Ratio Patient Problems - Patient Problem List (1) CHF (congestive heart failure) Current Visit: Yes Status: Acute Onset Date: 02/19/13 Code(s): I50.9 - Heart failure, unspecified Qualifiers: Heart failure type: right-sided Heart failure chronicity: acute on chronic Qualified Code(s): I50.813 - Acute on chronic right heart failure Category: Medical (2) GERD (gastroesophageal reflux disease) Status: Chronic Onset Date: 08/01/12 Code(s): K21.9 - Gastro-esophageal reflux disease without esophagitis Qualifiers: Esophagitis presence: esophagitis presence not specified Qualified Code(s): K21.9 - Gastro-esophageal reflux disease without esophagitis Category: Medical (3) Hypoxia Current Visit: Yes Status: Acute Onset Date: 02/27/13 Code(s): R09.02 - Hypoxemia Category: Medical (4) Grief reaction Current Visit: Yes Status: Acute Code(s): F43.21 - Adjustment disorder with depressed mood Category: Medical (5) Postconcussive syndrome Current Visit: Yes Status: Acute Code(s): F07.81 - Postconcussional syndrome Category: Medical (6) COPD (chronic obstructive pulmonary disease) Current Visit: Yes Status: Acute Code(s): J44.9 - Chronic obstructive pulmonary disease, unspecified Qualifiers: COPD type: emphysema Emphysema type: centrilobular Qualified Code(s): J43.2 - Centrilobular emphysema Category: Medical
--- NOTE | 2018-10-27 15:28 | OTI REPORT ---
Thank you for the referral of Adriana Liriano. She was seen on 10/26/18 for an occupational therapy inpatient evaluation secondary to weakness. SUBJECTIVE: The patient is an 83-year old female [place] She reports that prior to admission she was doing most things for herself such as dressing self, bathing self, making meals, and doing household tasks. She states she has not driven for quite some time. Her main goal is to get back home and to be safe. The patient did report that just recently her daughter and she is feeling pretty depressed about that. She reports she also has some pain in her neck and back. PAST MEDICAL HISTORY: Past medical history can be found in the patient's medical record. OBJECTIVE FINDINGS: General observations: Today the patient was sitting in chair upon the therapist's arrival. Range of motion: Active range of motion in the left upper extremity is within normal limits. In the right upper extremity the patient has a rotator cuff tear and is only able to actively flex shoulder to 30 degrees. Left elbow range of motion is within normal limits. On the right side the patient has difficulty moving her elbow and is more hesitant with movement and it is painful. Wrist range of motion is within normal limits bilaterally. Pain: The patient rates her pain in her low back as a 4/10 on the verbal analog scale (0=no pain, 10=worst pain) and her neck pain as a 3/10. Her right shoulder is also painful and she rates her pain as a 6/10 with movement. Activities of daily living: The patient was able to don and doff her socks with increased time. She had a little more difficulty with her right sock and required min assist. She was independent with donning the left sock. She required min assist to dress upper extremities secondary to right shoulder weakness and limited range of motion. Transfers: The patient required min assist to transfer from sit to stand. She does have some leg weakness. Endurance: Activity tolerance was fair to poor. Once we completed dynamic standing activities the patient fatigued quite easily. ASSESSMENT: The patient is demonstrating signs of depression. She would benefit from positive encouragement and possibly seeking further treatment for this. Problem List: Decreased safety awareness Decreased ability to complete ADLs Decreased upper extremity strength Decreased endurance Decreased ability to complete functional transfers Short-Term Goals: To be met by discharge from inpatient: Patient will be able to dress self independently including set up. Patient will increase left upper extremity strength to 4+/5 throughout and right elbow and wrist strength to 4/5. The patient's shoulder is more than likely torn and it will only increase the patient's pain to work on her right shoulder strength. Patient will be able to complete toilet transfers independently. Patient will be able to complete showering activity with stand by assist. Long-Term Goals: To be met following discharge from inpatient: Patient will return home demonstrating independence and safety with all ADLs, functional activities, and functional transfers. TREATMENT PLAN: Patient will be seen B.I.D during the week and one time per day over the weekend as an inpatient to address the above goals and objectives. INITIAL TREATMENT: Treatment today consisted of the initial evaluation followed by the patient completing dressing skills, sit to stand transfers, and ambulation x5 minutes. The patient demonstrated a lot of fatigue. We attempted hygiene activities but the patient was too tired after ambulation. KALIE
== END 2018-10-26 15:52 | disposition swing bed (61) | DRG 293 ==
LOC: ER 16:36 → MED/SURG 20:33
PROVIDERS: ADMIT Internal Medicine; ATTEND Internal Medicine